=== PATIENT | female | born 1960 | race Native Hawaiian/Other Pacific Islander ===

== ENCOUNTER 2017-11-16 09:06 | Outpatient (CLI) | payer OTHER | END 2017-11-16 23:39 | disposition home or self-care (01) | LOC: MAMMO 09:06 | DX: Z12.31 Encounter for screening mammogram for malignant neoplasm of breast (principal) ==

== ENCOUNTER 2021-11-04 15:55 | Outpatient (CLI) | payer OTHER | END 2021-11-04 19:00 | disposition home or self-care (01) | LOC: US 15:55 | PROVIDERS: ATTEND Nurse Practitioner Family | DX: E78.5 Hyperlipidemia, unspecified (principal); E03.9 Hypothyroidism, unspecified; D64.9 Anemia, unspecified; E66.9 Obesity, unspecified ==

== ENCOUNTER 2022-12-31 08:25 | Outpatient (CLI) | payer OTHER | END 2022-12-31 18:35 | disposition home or self-care (01) | LOC: MAMMO 08:25 | PROVIDERS: ATTEND Nurse Practitioner Family | DX: Z12.31 Encounter for screening mammogram for malignant neoplasm of breast (principal) ==